=== PATIENT | male | born 1975 | race African-American/Black ===

== ENCOUNTER 2018-06-17 14:31 | Emergency (ER) | payer OTHER ==
[~2018-06-17] VITALS: Ht 162.6 cm; Wt 77.1 kg
[2018-06-17] MEDS ORDERED: OSELB75 PO (15:24)
[2018-06-17] MEDS ORDERED: PROMETH-CODEIN 65 ML PO (15:24)
[2018-06-17 15:39] VITALS: BP 117/80
== END 2018-06-17 15:40 | disposition home or self-care (01) ==
LOC: ER 14:31
DX: J10.1 Influenza due to other identified influenza virus with other respiratory manifestations (principal); F17.210 Nicotine dependence, cigarettes, uncomplicated